=== PATIENT | female | born 1990 | race Caucasian/White ===

== ENCOUNTER 2020-09-06 15:17 | Emergency (ER) | payer MEDICAID ==
[2020-09-06] MEDS ORDERED: LORazepam 1 MG Tab PO ONE (16:14)
--- NOTE | 2020-09-06 16:19 | EDM.PDOC ---
ED HPI GENERAL MEDICAL PROBLEM - General Chief Complaint: Genitourinary Problem Stated Complaint: POSSIBLE UTI Time Seen by Provider: 09/06/20 15:51 Source of Information: Reports: Patient, RN Notes Reviewed History Limitations: Reports: No Limitations - History of Present Illness INITIAL COMMENTS - FREE TEXT/NARRATIVE: 30-year-old female presents emergency department today complaint of urinary frequency and urgency no dysuria she is markedly upset and feeling embarrassed that she had to come in for treatment of a urinary tract infection she has had some urinary incontinence she is tearful. - Related Data Allergies Allergy/AdvReac Type Severity Reaction Status Date / Time No Known Allergies Allergy Verified 09/06/20 15:42 Home Meds: Home Meds NK [No Known Home Meds] 10/27/19 [History] Past Medical History Respiratory History: Reports: Asthma Genitourinary History: Reports: Other (See Below) Other Genitourinary History: premature baby bladder reconstruction at 5 Musculoskeletal History: Reports: Fracture Other Musculoskeletal History: right ankle fracture in remote past Psychiatric History: Reports: Anxiety, Depression Endocrine/Metabolic History: Reports: Obesity/BMI 30+ - Infectious Disease History Infectious Disease History: Reports: Chicken Pox - Past Surgical History Head Surgeries/Procedures: Reports: None Respiratory Surgical History: Reports: None Female Surgical History: Reports: None Endocrine Surgical History: Reports: None Musculoskeletal Surgical History: Reports: None Dermatological Surgical History: Reports: None Social & Family History - Tobacco Use Tobacco Use Status *Q: Current Every Day Tobacco User Years of Tobacco use: 12 Packs/Tins Daily: 0.5 Used Tobacco, but Quit: No Second Hand Smoke Exposure: Yes - Caffeine Use Caffeine Use: Reports: Coffee, Energy Drinks, Soda, Tea - Recreational Drug Use Recreational Drug Use: No ED ROS GENERAL - Review of Systems Review Of Systems: See Below Constitutional: Denies: Fever, Chills : Reports: Frequency, Incontinence, Urgency Psychiatric: Reports: Anxiety ED EXAM, RENAL/ - Physical Exam Exam: See Below Exam Limited By: No Limitations General Appearance: Alert, Anxious, Other (Tearful) GI/Abdominal: Soft, Non-Tender Course - Vital Signs Last Recorded V/S: Last Vital Signs Temp 96.4 F L 09/06/20 15:42 Pulse 125 H 09/06/20 15:42 Resp 18 09/06/20 15:42 BP 144/85 H 09/06/20 15:42 Pulse Ox 93 L 09/06/20 15:42 - Orders/Labs/Meds Orders: Active Orders 24 hr Category Date Time Status CULTURE URINE [RM] Urgent Lab 09/06/20 16:15 Ordered Labs: Laboratory Tests 09/06/20 Range/Units 15:52 Urine Color Yellow (YELLOW) Urine Appearance Cloudy A (CLEAR) Urine pH 6.0 (5.0-8.0) Ur Specific Phenix >= 1.030 (1.008-1.030) Urine Protein Negative (NEGATIVE) mg/dL Urine Glucose (UA) Negative (NEGATIVE) mg/dL Urine Ketones Negative (NEGATIVE) mg/dL Urine Occult Blood Large H (NEGATIVE) Urine Nitrite Negative (NEGATIVE) Urine Bilirubin Negative (NEGATIVE) Urine Urobilinogen 0.2 (0.2-1.0) EU/dL Ur Leukocyte Esterase Trace H (NEGATIVE) Urine RBC 10-20 H (0-5) Urine WBC 10-20 H (0-5) Ur Epithelial Cells Moderate Amorphous Sediment Not seen Urine Bacteria Many Urine Mucus Few Meds: Medications Discontinued Medications Generic Name Dose Route Start Last Admin Trade Name Freq PRN Reason Stop Dose Admin Lorazepam 1 mg 09/06/20 16:14 Lorazepam 1 Mg Tab PO 09/06/20 16:15 ONETIME ONE Departure - Departure Time of Disposition: 16:18 Disposition: Home, Self-Care 01 Condition: Fair Clinical Impression: UTI, Urinary tract infectious disease - Discharge Information Instructions: Urinary Tract Infection, Adult Referrals: PCP,None [Primary Care Provider] - Additional Instructions: Take full course of antibiotics please followup with your primary care provider in 3-5 days if not better, please call return to the emergency department with worsening of symptoms., Sepsis Event Note (ED) - Evaluation Sepsis Screening Result: Possible Sepsis Risk - Focused Exam Vital Signs: Vital Signs Temp Pulse Resp BP Pulse Ox 09/06/20 15:42 96.4 F L 125 H 18 144/85 H 93 L 09/06/20 15:34 96.4 F L 125 H 18 144/85 H 93 L - My Orders Last 24 Hours: My Active Orders 09/06/20 16:15 CULTURE URINE [RM] Urgent - Assessment/Plan Last 24 Hours: My Active Orders 09/06/20 16:15 CULTURE URINE [RM] Urgent Plan: Assessment Acuity = acute Site and laterality = urinary tract infection Etiology = probable bacterial cause Manifestations = none Location of injury = Home Lab values = 10-20 RBCs consistent with hematuria 10-20 WBCs consistent with pyuria many bacteria cultures pending Plan She was provided 1 mg Ativan p.o. while in the emergency department, prescription written for Bactrim DS 1 tab p.o. twice daily x3 days follow-up primary care 3 to 5 days if not better This note was dictated using [employer] voice recognition software please call with any questions on syntax or grammar.
== END 2020-09-06 16:29 | disposition home or self-care (01) ==
LOC: JP.ED 15:17
DX: N39.0 Urinary tract infection, site not specified (principal); J45.909 Unspecified asthma, uncomplicated; E66.9 Obesity, unspecified; Z68.45 Body mass index [BMI] 70 or greater, adult; Z72.0 Tobacco use
CPT/HCPCS: 81001; 87086; 87088; 87186; 99283; A9270

== ENCOUNTER 2020-10-16 15:52 | Emergency (ER) | payer MEDICAID ==
--- NOTE | 2020-10-16 16:44 | EDM.PDOC ---
ED HPI GENERAL MEDICAL PROBLEM - General Chief Complaint: Lower Extremity Injury/Pain Stated Complaint: FEET AND LEGS SWOLLEN - BOTH Time Seen by Provider: 10/16/20 16:35 Source of Information: Reports: Patient, RN. Denies: Old Records History Limitations: Reports: Other (no old records) - History of Present Illness INITIAL COMMENTS - FREE TEXT/NARRATIVE: 30 yo female with no local doctor presents with bilateral leg swelling that is recently worse than usual. No orthopnea or chest pain. Has pHx of HTN not tx'd. Is morbidly obese. No FHx of bad leg veins. Works at a [email or web address] and has been on her feet more lately than usual. No calf pain. Onset: Gradual, Unknown/Unsure Duration: Week(s):, Getting Worse Location: Reports: Lower Extremity, Left, Lower Extremity, Right Quality: Reports: Other (no pain) Severity: Moderate Improves with: Reports: Other (elevation) Worsens with: Reports: Other (prolonged standing) Context: Reports: Other (See HPI) Associated Symptoms: Reports: No Other Symptoms. Denies: Chest Pain, Shortness of Breath Treatments TRIALS MANAGER: Reports: Other (see below) (none) Lower Leg Pain Score (Numeric/FACES): 3 - Related Data Allergies Allergy/AdvReac Type Severity Reaction Status Date / Time No Known Allergies Allergy Verified 09/06/20 15:42 Home Meds: Home Meds Lisinopril/Hydrochlorothiazide [Lisinopril-Hctz 20-25 mg Tab] 1 each PO DAILY #30 tablet 10/16/20 [Rx] Past Medical History Respiratory History: Reports: Asthma Genitourinary History: Reports: Other (See Below) Other Genitourinary History: premature baby bladder reconstruction at 5 Musculoskeletal History: Reports: Fracture Other Musculoskeletal History: right ankle fracture in remote past Psychiatric History: Reports: Anxiety, Depression Endocrine/Metabolic History: Reports: Obesity/BMI 30+ - Infectious Disease History Infectious Disease History: Reports: Chicken Pox - Past Surgical History Head Surgeries/Procedures: Reports: None Respiratory Surgical History: Reports: None Female Surgical History: Reports: None Endocrine Surgical History: Reports: None Musculoskeletal Surgical History: Reports: None Dermatological Surgical History: Reports: None Social & Family History - Tobacco Use Tobacco Use Status *Q: Current Every Day Tobacco User Years of Tobacco use: 12 Packs/Tins Daily: 0.5 - Caffeine Use Caffeine Use: Reports: Coffee, Energy Drinks, Soda - Recreational Drug Use Recreational Drug Use: No Review of Systems - Review of Systems Review Of Systems: See Below Constitutional: Reports: No Symptoms Eyes: Reports: No Symptoms Ears: Reports: No Symptoms Nose: Reports: No Symptoms Mouth/Throat: Reports: No Symptoms Respiratory: Reports: No Symptoms. Denies: Shortness of Breath Cardiovascular: Reports: Edema (of both legs). Denies: Chest Pain Genitourinary: Reports: No Symptoms Musculoskeletal: Reports: No Symptoms Skin: Reports: No Symptoms Neurological: Reports: No Symptoms ED EXAM, GENERAL - Physical Exam Exam: See Below Exam Limited By: No Limitations General Appearance: Alert, WD/WN, No Apparent Distress, Obese Eye Exam: Bilateral Eye: Normal Inspection Ears: Normal External Exam, Normal Canal, Hearing Grossly Normal Ear Exam: Bilateral Ear: Auricle Normal, Canal Normal Nose: Normal Inspection, No Blood Throat/Mouth: Normal Inspection, Normal Lips, Normal Voice, No Airway Compromise Head: Atraumatic, Normocephalic Respiratory/Chest: No Respiratory Distress, Lungs Clear, Normal Breath Sounds, No Accessory Muscle Use Cardiovascular: Regular Rate, Rhythm. No: No Edema (1+ pitting edema of both legs below the knees.) Extremities: Non-Tender, Pedal Edema. No: No Pedal Edema, Ese's Sign, Increased Warmth Neurological: Alert, Oriented, CN II-XII Intact, Normal Cognition, No Motor/Sensory Deficits Psychiatric: Normal Affect, Normal Mood Skin Exam: Warm, Dry, Intact, Normal Color, No Rash Course - Vital Signs Last Recorded V/S: Last Vital Signs Temp 36.3 C 10/16/20 16:03 Pulse 102 H 10/16/20 16:03 Resp 22 H 10/16/20 16:03 BP 155/90 H 10/16/20 16:03 Pulse Ox - Orders/Labs/Meds Labs: Laboratory Tests 10/16/20 Range/Units 16:45 Sodium 138 L (140-148) mmol/L Potassium 3.7 (3.6-5.2) mmol/L Chloride 100 (100-108) mmol/L Carbon Dioxide 28 (21-32) mmol/L Anion Gap 13.7 (5.0-14.0) mmol/L BUN 19 H (7-18) mg/dL Creatinine 0.9 (0.6-1.0) mg/dL Est Cr Clr Drug Dosing 96.39 mL/min Estimated GFR (MDRD) > 60 (>60) Glucose 83 (74-106) mg/dL Calcium 8.7 (8.5-10.1) mg/dL Departure - Departure Time of Disposition: 17:15 Disposition: Home, Self-Care 01 Condition: Fair Clinical Impression: Leg edema HTN (hypertension) Qualifiers: Hypertension type: essential hypertension Qualified Code(s): I10 - Essential (primary) hypertension - Discharge Information *PRESCRIPTION DRUG MONITORING PROGRAM REVIEWED*: Not Applicable *COPY OF PRESCRIPTION DRUG MONITORING REPORT IN PATIENT ANDREI: Not Applicable Prescriptions: Lisinopril/Hydrochlorothiazide [Lisinopril-Hctz 20-25 mg Tab] 1 each PO DAILY #30 tablet Instructions: Hypertension, Adult, [id number] Referrals: PCP,None [Primary Care Provider] - Forms: ED Department Discharge Additional Instructions: Avoid salt or salty foods. Elevate your legs above your heart as much as possible. Eat foods more often that are rich in potassium. Get established with a primary care provider and follow up for recheck. Sepsis Event Note (ED) - Evaluation Sepsis Screening Result: No Definite Risk - Focused Exam Vital Signs: Vital Signs Temp Pulse Resp BP 10/16/20 16:03 36.3 C 102 H 22 H 155/90 H
== END 2020-10-16 17:29 | disposition home or self-care (01) ==
LOC: JP.ED 15:52
DX: R60.0 Localized edema (principal); I10 Essential (primary) hypertension; J45.909 Unspecified asthma, uncomplicated; E66.9 Obesity, unspecified; Z72.0 Tobacco use; Z68.45 Body mass index [BMI] 70 or greater, adult; Z79.899 Other long term (current) drug therapy
CPT/HCPCS: 36415; 80048; 99284

== ENCOUNTER 2021-06-05 14:21 | Emergency (ER) | payer MEDICAID ==
[2021-06-05] MEDS ORDERED: Sodium Chloride 0.9% 1,000 ML IV STA (16:20)
[2021-06-05] MEDS ORDERED: Sodium Chloride 0.9% 10 ML Syringe FLUSH PRN (16:20)
[2021-06-05] MEDS ORDERED: Ondansetron 4 MG/2 ML SDV IVPUSH ONE (16:21)
[2021-06-05] MEDS ORDERED: fentaNYL 100 MCG/2 ML SDV IVPUSH ONE (16:21)
--- NOTE | 2021-06-05 16:23 | EDM.PDOC ---
<OfficerFelton - Last Filed: 06/05/21 16:21> ED HPI GENERAL MEDICAL PROBLEM - General Chief Complaint: Abdominal Pain Stated Complaint: PAIN IN RT SIDE TO LOWER BACK Time Seen by Provider: 06/05/21 16:16 Source of Information: Reports: Patient, Family, RN Notes Reviewed History Limitations: Reports: No Limitations - History of Present Illness INITIAL COMMENTS - FREE TEXT/NARRATIVE: 30-year-old female presents emergency department today complaint of abdominal pain, she states she had abdominal pain for 24 hours it is in the right upper quadrant goes into her back she has had nausea and vomiting no fevers no shortness of breath or chest pain. - Related Data Allergies Allergy/AdvReac Type Severity Reaction Status Date / Time No Known Allergies Allergy Verified 06/05/21 15:07 Home Meds: Home Meds Lisinopril/Hydrochlorothiazide [Lisinopril-Hctz 20-25 mg Tab] 1 each PO DAILY #30 tablet 10/16/20 [Rx] Sertraline [Zoloft] 25 mg PO DAILY 06/05/21 [History] buPROPion [Wellbutrin] 75 mg PO BEDTIME 06/05/21 [History] Past Medical History Cardiovascular History: Reports: Hypertension Respiratory History: Reports: Asthma Genitourinary History: Reports: Other (See Below) Other Genitourinary History: premature baby bladder reconstruction at 5 Musculoskeletal History: Reports: Fracture Other Musculoskeletal History: right ankle fracture in remote past Psychiatric History: Reports: Anxiety, Depression Endocrine/Metabolic History: Reports: Obesity/BMI 30+ - Infectious Disease History Infectious Disease History: Reports: Chicken Pox - Past Surgical History Head Surgeries/Procedures: Reports: None Respiratory Surgical History: Reports: None Female Surgical History: Reports: None Endocrine Surgical History: Reports: None Musculoskeletal Surgical History: Reports: None Dermatological Surgical History: Reports: None Social & Family History - Tobacco Use Tobacco Use Status *Q: Current Every Day Tobacco User Years of Tobacco use: 10 Packs/Tins Daily: 0.5 - Caffeine Use Caffeine Use: Reports: Coffee, Soda - Recreational Drug Use Recreational Drug Use: No ED ROS GENERAL - Review of Systems Review Of Systems: See Below Constitutional: Denies: Fever, Chills Respiratory: Reports: No Symptoms Cardiovascular: Reports: No Symptoms GI/Abdominal: Reports: Abdominal Pain, Nausea, Vomiting : Reports: No Symptoms ED EXAM, GI/ABD - Physical Exam Exam: See Below Exam Limited By: No Limitations General Appearance: Alert, WD/WN, No Apparent Distress Respiratory/Chest: No Respiratory Distress GI/Abdominal Exam: Soft, Tender (Right upper quadrant), Other (Difficult to assess due to body habitus) Departure - Departure Disposition: Home, Self-Care 01 Clinical Impression: Abdominal pain, RLQ, Ovarian cyst, right, Fatty liver disease, nonalcoholic - Discharge Information Instructions: Abdominal Pain, Adult, [id number], Ovarian Cyst, [id number], Ovarian Cyst Referrals: PCP,None [Primary Care Provider] - Forms: ED Department Discharge Additional Instructions: Activity as tolerated. Diet as tolerated. Take ibuprofen 200 to 400 mg every 6 hours as needed for pain. Use lowest effective dose for shortest duration. In addition, may use acetaminophen 500 mg to 1000 mg every 6 hours as needed for pain. Maximum dose of 4000 mg/day. Narcotic pain medication was tried in the emergency department and this was ineffective. Effective pain management may require intervention for the somewhat large right ovarian cyst. This is to be determined. Pelvic ultrasound will be obtained. Follow-up in the clinic is necessary. You may return to the emergency department if pain is severe or uncontrolled, if you have lightheadedness or dizziness or you feel faint, with high fevers, chills, sweats. <Nelson Vargas - Last Filed: 06/05/21 19:29> Course - Vital Signs Last Recorded V/S: Last Vital Signs Temp 98.2 F 06/05/21 18:09 Pulse 95 06/05/21 18:09 Resp 16 06/05/21 18:09 BP 143/79 H 06/05/21 18:09 Pulse Ox 96 06/05/21 18:09 - Orders/Labs/Meds Orders: Active Orders 24 hr Category Date Time Status Peripheral IV Care [RC] . DIRECTED Care 06/05/21 16:20 Active Transvaginal Non OB [US] Routine Exams 06/06/21 Ordered Iopamidol [Isovue-300 (61%)] Med 06/05/21 16:48 Active 150 ml IV . DIRECTED PRN Sodium Chloride 0.9% [Normal Saline] 100 ml Med 06/05/21 17:00 Active IV ASDIRECTED Sodium Chloride 0.9% [Saline Flush] Med 06/05/21 16:20 Active 10 ml FLUSH ASDIRECTED PRN Peripheral IV Insertion Adult [OM.PC] Urgent Oth 06/05/21 16:20 Ordered Medication Orders Sodium Chloride (Normal Saline) 100 mls @ 3 mls/sec IV ASDIRECTED TOM Last Admin: 06/05/21 17:33 Dose: 3 mls/sec Documented by: CHRISTINE Iopamidol (Iopamidol 612 Mg/Ml 150 Ml Bottle) 150 ml IV . DIRECTED PRN PRN Reason: RADIOLOGY EXAM Stop: 06/06/21 16:49 Last Admin: 06/05/21 17:33 Dose: 150 ml Documented by: CHRISTINE Sodium Chloride (Sodium Chloride 0.9% 10 Ml Syringe) 10 ml FLUSH ASDIRECTED PRN PRN Reason: Keep Vein Open Last Admin: 06/05/21 18:59 Dose: 10 ml Documented by: BETITO Labs: Laboratory Tests 06/05/21 06/05/21 06/05/21 Range/Units 16:36 16:36 16:36 WBC 10.0 (3.2-11.0) K/uL RBC 5.65 H (3.77-5.24) M/uL Hgb 13.0 (11.2-15.5) Hct 44.3 (34.3-46.0) % MCV 78.4 L (81.4-99.0) fL MCH 23.0 L (31.6-35.5) pg MCHC 29.3 L (31.6-35.5) g/dL Plt Count 381 H (130-375) K/uL Immature Gran % (Auto) 0.9 H (0.0-0.7) % Neut % (Auto) 76.8 H (36-66) % Lymph % (Auto) 16.1 L (24-44) % Miner % (Auto) 5.2 (2-6) % Eos % (Auto) 0.6 L (2-4) % Baso % (Auto) 0.4 (0-1) % Neut # (Auto) 7.67 H (1.0-7.6) K/uL Lymph # (Auto) 1.61 (0.8-3.3) K/uL Miner # (Auto) 0.52 (0.20-0.90) K/uL Eos # (Auto) 0.06 L (0.60-0.80) K/uL Baso # (Auto) 0.04 (0.00-0.10) K/uL Immature Gran # (Auto) 0.09 (0.00-0.23) K/uL Sodium 137 L (140-148) mmol/L Potassium 4.3 (3.6-5.2) mmol/L Chloride 100 (100-108) mmol/L Carbon Dioxide 31 (21-32) mmol/L Anion Gap 10.3 (5.0-14.0) mmol/L BUN 15 (7-18) mg/dL Creatinine 0.9 (0.6-1.0) mg/dL Est Cr Clr Drug Dosing 89.69 mL/min Estimated GFR (MDRD) > 60 (>60) Glucose 103 (74-106) mg/dL Lactic Acid 0.9 (0.4-2.0) mmol/L Calcium 9.4 (8.5-10.1) mg/dL Total Bilirubin 0.3 (0.2-1.0) mg/dL AST 24 (15-37) U/L ALT 53 (12-78) U/L Alkaline Phosphatase 64 (46-116) U/L Total Protein 8.3 H (6.4-8.2) g/dL Albumin 3.6 (3.4-5.0) g/dL Globulin 4.7 H (2.3-3.5) g/dL Albumin/Globulin Ratio 0.8 L (1.2-2.2) Urine Color (YELLOW) Urine Appearance (CLEAR) Urine pH (5.0-8.0) Ur Specific Beverly (1.008-1.030) Urine Protein (NEGATIVE) mg/dL Urine Glucose (UA) (NEGATIVE) mg/dL Urine Ketones (NEGATIVE) mg/dL Urine Occult Blood (NEGATIVE) Urine Nitrite (NEGATIVE) Urine Bilirubin (NEGATIVE) Urine Urobilinogen (0.2-1.0) EU/dL Ur Leukocyte Esterase (NEGATIVE) Urine RBC (0-5) Urine WBC (0-5) Ur Epithelial Cells Amorphous Sediment Urine Bacteria Urine Mucus Urine HCG, Qual 06/05/21 06/05/21 Range/Units 16:54 16:54 WBC (3.2-11.0) K/uL RBC (3.77-5.24) M/uL Hgb (11.2-15.5) Hct (34.3-46.0) % MCV (81.4-99.0) fL MCH (31.6-35.5) pg MCHC (31.6-35.5) g/dL Plt Count (130-375) K/uL Immature Gran % (Auto) (0.0-0.7) % Neut % (Auto) (36-66) % Lymph % (Auto) (24-44) % Miner % (Auto) (2-6) % Eos % (Auto) (2-4) % Baso % (Auto) (0-1) % Neut # (Auto) (1.0-7.6) K/uL Lymph # (Auto) (0.8-3.3) K/uL Miner # (Auto) (0.20-0.90) K/uL Eos # (Auto) (0.60-0.80) K/uL Baso # (Auto) (0.00-0.10) K/uL Immature Gran # (Auto) (0.00-0.23) K/uL Sodium (140-148) mmol/L Potassium (3.6-5.2) mmol/L Chloride (100-108) mmol/L Carbon Dioxide (21-32) mmol/L Anion Gap (5.0-14.0) mmol/L BUN (7-18) mg/dL Creatinine (0.6-1.0) mg/dL Est Cr Clr Drug Dosing mL/min Estimated GFR (MDRD) (>60) Glucose (74-106) mg/dL Lactic Acid (0.4-2.0) mmol/L Calcium (8.5-10.1) mg/dL Total Bilirubin (0.2-1.0) mg/dL AST (15-37) U/L ALT (12-78) U/L Alkaline Phosphatase (46-116) U/L Total Protein (6.4-8.2) g/dL Albumin (3.4-5.0) g/dL Globulin (2.3-3.5) g/dL Albumin/Globulin Ratio (1.2-2.2) Urine Color Yellow (YELLOW) Urine Appearance Cloudy A (CLEAR) Urine pH 7.5 (5.0-8.0) Ur Specific Beverly 1.020 (1.008-1.030) Urine Protein Trace H (NEGATIVE) mg/dL Urine Glucose (UA) Negative (NEGATIVE) mg/dL Urine Ketones Negative (NEGATIVE) mg/dL Urine Occult Blood Negative (NEGATIVE) Urine Nitrite Negative (NEGATIVE) Urine Bilirubin Negative (NEGATIVE) Urine Urobilinogen 0.2 (0.2-1.0) EU/dL Ur Leukocyte Esterase Negative (NEGATIVE) Urine RBC 0-5 (0-5) Urine WBC 0-5 (0-5) Ur Epithelial Cells Moderate Amorphous Sediment Moderate Urine Bacteria Many Urine Mucus Rare Urine HCG, Qual Negative Meds: Medications Generic Name Dose Route Start Last Admin Trade Name Freq PRN Reason Stop Dose Admin Sodium Chloride 100 mls @ 3 mls/sec 06/05/21 17:00 06/05/21 17:33 Normal Saline IV 3 mls/sec ASDIRECTED TOM Administration Iopamidol 150 ml 06/05/21 16:48 06/05/21 17:33 Iopamidol 612 Mg/Ml 150 Ml Bottle IV 06/06/21 16:49 150 ml . DIRECTED PRN Administration RADIOLOGY EXAM Sodium Chloride 10 ml 06/05/21 16:20 06/05/21 18:59 Sodium Chloride 0.9% 10 Ml Syringe FLUSH 10 ml ASDIRECTED PRN Administration Keep Vein Open Discontinued Medications Generic Name Dose Route Start Last Admin Trade Name William PRN Reason Stop Dose Admin Fentanyl 50 mcg 06/05/21 16:21 06/05/21 16:34 Fentanyl 100 Mcg/2 Ml Sdv IVPUSH 06/05/21 16:22 50 mcg ONETIME ONE Administration Sodium Chloride 1,000 mls @ 500 mls/hr 06/05/21 16:20 06/05/21 16:32 Normal Saline IV 06/05/21 18:19 500 mls/hr .BOLUS STA Administration Ibuprofen 400 mg 06/05/21 18:48 06/05/21 18:54 Ibuprofen 400 Mg Tab PO 06/05/21 18:49 400 mg ONETIME ONE Administration Ondansetron HCl 4 mg 06/05/21 16:21 06/05/21 16:34 Ondansetron 4 Mg/2 Ml Sdv IVPUSH 06/05/21 16:22 4 mg ONETIME ONE Administration Sodium Chloride 10 ml 06/05/21 16:48 06/05/21 17:34 Sodium Chloride 0.9% 10 Ml Sdv FLUSH 06/05/21 16:49 10 ml ONETIME ONE Administration - Re-Assessments/Exams Free Text/Narrative Re-Assessment/Exam: 06/05/21 18:54 I received the patient in handoff from [place] Officer. Patient had CT of abdomen for right lower quadrant abdominal pain. This showed a 7 cm right ovarian cyst. No evidence of acute appendicitis. No intra-abdominal free fluid. She had fatty infiltration of liver. No obvious abnormalities of gallbladder. Biliary tree was unremarkable. I discussed these findings with the patient. Radiologic findings seem to correlate with her pain and that it is very low in the right lower abdomen. This pain radiates through to the lower back. I recommended transvaginal pelvic ultrasound. This can be scheduled as an outpatient. Patient did not have any pain relief with fentanyl. I recommended 400 mg of ibuprofen. This to be given in the emergency department and she will be reassessed. Free Text/Narrative Re-Assessment/Exam: 06/05/21 19:28 Re-evaluated after 400 mg of Motrin. Pain had improved to some degree. Discussed discharge plan. Patient is agreeable. Return precautions given. Departure - Departure Time of Disposition: 19:29 Condition: Good - Discharge Information *PRESCRIPTION DRUG MONITORING PROGRAM REVIEWED*: Not Applicable *COPY OF PRESCRIPTION DRUG MONITORING REPORT IN PATIENT ANDREI: Not Applicable Sepsis Event Note (ED) - Focused Exam Vital Signs: Vital Signs Temp Pulse Resp BP Pulse Ox 06/05/21 18:09 98.2 F 95 16 143/79 H 96 06/05/21 14:58 98.0 F 113 H 22 H 148/69 H 96 - Problem List & Annotations (1) Abdominal pain, RLQ SNOMED Code(s): 319358338 Code(s): R10.31 - RIGHT LOWER QUADRANT PAIN Status: Acute Current Visit: Yes (2) Ovarian cyst, right SNOMED Code(s): 74738234 Code(s): N83.201 - UNSPECIFIED OVARIAN CYST, RIGHT SIDE Status: Acute Current Visit: Yes (3) Morbid obesity with BMI of 70 and over, adult SNOMED Code(s): 663278230 Code(s): E66.01 - MORBID (SEVERE) OBESITY DUE TO EXCESS CALORIES; Z68.45 - BODY MASS INDEX [BMI] 70 OR GREATER, ADULT Status: Chronic Current Visit: No - Problem List Review Problem List Initiated/Reviewed/Updated: Yes - My Orders Last 24 Hours: My Active Orders 06/06/21 Transvaginal Non OB [US] Routine - Assessment/Plan Last 24 Hours: My Active Orders 06/06/21 Transvaginal Non OB [US] Routine Assessment:: 1. Acute right lower quadrant abdominal pain with radiation to the back. 2. Nonspecific, 7 cm right ovarian cyst. This is a likely explanation for #1. 3. Morbid obesity 4. Fatty liver disease Plan: Try to manage pain with acetaminophen and/or ibuprofen. Transvaginal ultrasound for right ovarian cyst and pelvic pain is to be scheduled. Clinic follow-up will follow. Referral may be necessary. Intervention may be necessary for the ovarian cyst if this is the source of her pain and if she is unable to find relief. Return precautions discussed. Weight loss is imperative.
[2021-06-05] MEDS ORDERED: Iopamidol 612 MG/ML 150 ML Bottle IV PRN (16:48)
[2021-06-05] MEDS ORDERED: Sodium Chloride 0.9% 10 ML SDV FLUSH ONE (16:48)
[2021-06-05] MEDS ORDERED: Sodium Chloride 0.9% 100 ML IV SCH (17:00)
--- NOTE | 2021-06-05 18:16 | CRLCT ---
For Patients: As a result of the Century Cures Act, medical imaging exams and procedure reports are released immediately into your electronic medical record. You may view this report before your referring provider. If you have questions, please contact your health care provider. Indication: Right upper quadrant pain. Technique: Multiple contiguous axial images were obtained from the lung bases to the symphysis pubis after the intravenous administration 150 cc [id number]. Please note that all CT scans at this facility use dose modulation, iterative reconstruction, and/or weight-based dosing when appropriate to reduce radiation dose to as low as reasonably achievable. Comparison: None Findings: The lung bases are clear. Minimal dependent atelectasis is identified on the left. The heart is normal in size. No pericardial effusion is identified. Diffuse fatty infiltration of the liver is identified. The liver measures 23.6 cm in size. The gallbladder, spleen, pancreas, adrenals, and kidneys are normal. No intrahepatic biliary ductal dilatation is identified. No hydronephrosis is identified. A probable right ovarian cyst is identified measuring approximately 7.2 x 6.8 cm in size. An ultrasound may be of benefit in further evaluating this finding. The uterus and urinary bladder grossly normal. The small and large bowel are normal in caliber. No free fluid or free air is identified within the abdomen or pelvis. The aorta is normal in caliber. Degenerative changes of the spine are identified. Impression: Diffuse fatty infiltration of the liver. Hepatomegaly. Probable right ovarian cyst. Ultrasound may be of benefit. Please note that all CT scans at this facility use dose modulation, iterative reconstruction, and/or weight-based dosing when appropriate to reduce radiation dose to as low as reasonably achievable. Dictated by Shikha Norton MD @ 06/05/2021 6:15:20 PM (Electronically Signed)
[2021-06-05] MEDS ORDERED: Ibuprofen 400 MG Tab PO ONE (18:48)
== END 2021-06-05 19:44 | disposition home or self-care (01) ==
LOC: JP.ED 14:21
DX: N83.201 Unspecified ovarian cyst, right side (principal); K76.0 Fatty (change of) liver, not elsewhere classified; I10 Essential (primary) hypertension; F17.210 Nicotine dependence, cigarettes, uncomplicated; Z79.899 Other long term (current) drug therapy
CPT/HCPCS: 36415; 74177; 80053; 81001; 81025; 83605; 85025; 96374; 96375; 99284; A9270; J2405; J3010; J7030; Q9967

== ENCOUNTER 2023-01-25 09:51 | Day surgery (SDC) | payer MEDICAID ==
[2023-01-25] MEDS ORDERED: Propofol 200 MG/20 ML SDV ONE (10:29)
[2023-01-25] MEDS ORDERED: Succinylcholine 200 MG/10 ML MDV ONE (10:29)
[2023-01-25] MEDS ORDERED: Rocuronium 50 MG/5 ML Vial ONE (10:29)
[2023-01-25] MEDS ORDERED: Ondansetron 4 MG/2 ML SDV ONE (10:29)
[2023-01-25] MEDS ORDERED: Dexamethasone 4 MG/ML SDV ONE (10:29)
[2023-01-25] MEDS ORDERED: Glycopyrrolate 0.2 MG/ML 5 ML MDV ONE (10:29)
[2023-01-25] MEDS ORDERED: Neostigmine Methylsulfate 1 MG/ML 5 ML Syringe ONE (10:29)
[2023-01-25] MEDS ORDERED: metroNIDAZOLE/Normal Saline 500 MG in Premix Bag 1 BAG IV ONE (10:30)
[2023-01-25] MEDS ORDERED: ceFAZolin 2 GM in Premix Bag 1 BAG IV ONE (10:30)
[2023-01-25] MEDS ORDERED: Sodium Chloride 0.9% 1,000 ML IV SCH (10:30)
[2023-01-25] MEDS ORDERED: fentaNYL 250 MCG/5 ML SDV ONE ×2 (10:30→11:59)
[2023-01-25 10:33] LABS: HEMATOCRIT 40.1 % (34.3-46.0); HEMOGLOBIN 12.6 g/dL (11.2-15.5); MEAN CORPUSCULAR HEMOGLOBIN 26.1 pg (31.6-35.5); MEAN CORPUSCULAR HGB CONC 31.4 g/dL (31.6-35.5); MEAN CORPUSCULAR VOLUME 83.2 fL (81.4-99.0); RED BLOOD CELL COUNT 4.82 M/uL (3.77-5.24); WHITE BLOOD CELL COUNT,WBC 7.5 K/uL (3.2-11.0)
[2023-01-25 10:56] LABS: A/G RATIO 0.7 (1.2-2.2); ALANINE AMINOTRANSFERASE,ALT 66 U/L (12-78); ALBUMIN 3.3 g/dL (3.4-5.0); ALKALINE PHOSPHATASE 59 U/L (46-116); ASPARTATE AMNIOTRANSFERASE,AST 37 U/L (15-37); BILIRUBIN TOTAL 0.3 mg/dL (0.2-1.0); BLOOD UREA NITROGEN,BUN 15 mg/dL (7-18); CALCIUM 9.1 mg/dL (8.5-10.1); CARBON DIOXIDE,CO2 29 mmol/L (21-32); CHLORIDE,CL 101 mmol/L (100-108); CREATININE 0.8 mg/dL (0.6-1.0); EST CRCL DRUG DOSING (CG) 97.23 mL/min; ESTIMATED GFR 101 mL/min (>60); GLUCOSE RANDOM 113 mg/dL (74-106); POTASSIUM,K 4.4 mmol/L (3.6-5.2); SODIUM,NA 137 mmol/L (140-148)
[2023-01-25 10:58] LABS: ANION GAP 11.4 mmol/L (5.0-14.0)
[2023-01-25] MEDS: Bupivacaine 0.5%/EPINEPHrine 1:200,000 50 ML MDV ONE ×2 (13:00→14:32)
[2023-01-25] MEDS ORDERED: Lactated Ringers 1,000 ML ONE (13:05)
[2023-01-25] MEDS ORDERED: hydrOXYzine HCL 100 MG/2 ML SDV IM ONE (14:00)
[2023-01-25] MEDS ORDERED: fentaNYL 50 MCG/ML SDV IVPUSH ONE (14:00)
[2023-01-25] MEDS ORDERED: Acetaminophen/HYDROcodone 325-5 MG Tab PO PRN (14:17)
== END 2023-01-25 15:33 | disposition home or self-care (01) ==
LOC: JP.SDS 09:51
PROVIDERS: ATTEND Surgery
DX: K42.0 Umbilical hernia with obstruction, without gangrene (principal); F17.200 Nicotine dependence, unspecified, uncomplicated
CPT/HCPCS: 36415; 49592; 80053; 84703; 85027; A9270; C1713; C1781; J0171; J0330; J0690; J1100; J2405; J2704; J2710; J2795; J3010; J3410; J3490; J7030; J7120

== ENCOUNTER 2024-05-26 22:46 | Emergency (ER) | payer SELFPAY ==
[2024-05-26 23:25] LABS: BASOPHILS ABSOLUTE AUTO 0.04 K/uL (0.00-0.10); BASOPHILS PERCENT AUTO 0.5 % (0.1-1.3); EOSINOPHILS ABSOLUTE AUTO 0.18 K/uL (0.00-0.40); HEMATOCRIT 40.5 % (34.3-46.0); HEMOGLOBIN 12.9 g/dL (11.2-15.5); IMMATURE GRAN ABSOLUTE AUTO 0.06 K/uL (0.00-0.23); IMMATURE GRAN PERCENT AUTO 0.7 % (0.0-0.7); LYMPHOCYTES ABSOLUTE AUTO 2.42 K/uL (0.8-3.3); LYMPHOCYTES PERCENT AUTO 27.4 % (11.4-47.7); MEAN CORPUSCULAR HEMOGLOBIN 26.7 pg (31.6-35.5); MEAN CORPUSCULAR HGB CONC 31.9 g/dL (31.6-35.5); MEAN CORPUSCULAR VOLUME 83.9 fL (81.4-99.0); MONOCYTES ABSOLUTE AUTO 0.63 K/uL (0.20-0.90); MONOCYTES PERCENT AUTO 7.1 % (3.3-12.6); NEUTROPHILS ABSOLUTE AUTO 5.51 K/uL (1.0-7.6); NEUTROPHILS PERCENT AUTO 62.3 % (40.0-78.1); PLATELET COUNT,PLT 136 K/uL (130-375); RED BLOOD CELL COUNT 4.83 M/uL (3.77-5.24); WHITE BLOOD CELL COUNT,WBC 8.8 K/uL (3.2-11.0)
== END 2024-05-26 23:46 | disposition home or self-care (01) ==
LOC: JP.ED 22:46
DX: K42.9 Umbilical hernia without obstruction or gangrene (principal); L30.9 Dermatitis, unspecified; I10 Essential (primary) hypertension; J45.909 Unspecified asthma, uncomplicated; E66.9 Obesity, unspecified; Z68.45 Body mass index [BMI] 70 or greater, adult; Z86.16 Personal history of COVID-19; Z72.0 Tobacco use
CPT/HCPCS: 36415; 85025; 99283